=== PATIENT | male | born 1950 | race African-American/Black ===

== ENCOUNTER 2016-11-27 00:15 | Emergency (ER) | payer MEDICARE, OTHER ==
[~2016-11-27] VITALS: Ht 182.9 cm; Wt 99.8 kg
[~2016-11-27 00:15] MED LIST: ACET325T9 PO; ACET325T9 PR; ALPR0.257 PO; ASCO-78 PEG; ASCO500T3 PO; CHLO15MO2 PO; COLL30OI TP; DARB40DI SQ; DOCU60SY5 PO; ENOX40DI SQ; FAMO20TA5 PEG; FAMO20VI3 IVP; FENT100D IV; FENT1PAT15 TP; FENT1PAT21 TP; FERR300L PO; FURO100P IV; HALO5VIA2 IV; INSU100I17 SQ; LACO100T PEG; LACO100T PO; LACO10SO IV; LEVE100020 PEG; LEVE10007 PO; LORA1TAB PO; LORA2VIA IV; MERO1VIA15 IV; METR500P3 IV; MULT9LIQ2 PEG; NYST1POW2 PO; OXYC5TAB PO; PHEN125O3 PO; POLY17PO3 PEG; PROTEIN SUPPLEMENT PEG; QUET25TA5 PEG; RIVA1.5C4 PO; RIVA20TA2 PEG; RIVA20TA2 PO; TRYP30OI2 TP; VANC1.254 IV; VIT1TABL65 PO; ZINC28OI TP; [UNRECOGNIZED DRUG - CODE] IV; [UNRECOGNIZED DRUG - CODE] IV; [UNRECOGNIZED DRUG - CODE] IVP; [UNRECOGNIZED DRUG - CODE] PEG; [UNRECOGNIZED DRUG - CODE] PO; [UNRECOGNIZED DRUG - CODE] PO; [UNRECOGNIZED DRUG - CODE] PO
--- NOTE | 2016-11-27 02:03 | PHYS DOC ---
Past Medical History Past Medical History: Anxiety, Constipation, Dementia, Seizure, UTI Additional Past Medical Histor: PRESSURE ULCERS,FAILURE TO THRIVE,MALNUTRITION, EPILESPY Past Surgical History: Tonsillectomy Alcohol Use: None Drug Use: None Adult General Chief Complaint Chief Complaint: URINE CATHETER PROBLEM HPI HPI Patient is a 66 year old male who presents by EMS from nursing care facility for evaluation of Hernandez catheter problem. Hernandez catheter was not draining, and he acted as if he was having some discomfort. His catheter was manipulated, but nursing facility could not obtain urine output. So, he was sent here. He is minimally verbal at baseline. Nursing facility reports he is at his mental baseline. Review of Systems Review of Systems Unable to obtain secondary to mental status Allergies Allergies Allergies Coded Allergies Type Severity Reaction Last Updated Verified I S O L A T I O N *CONTACT* Allergy Unknown 10/19/16 Yes No Known Medication Allergies Allergy Unknown 10/19/16 Yes Physical Exam Physical Exam Constitutional: Thin, no acute distress, non-toxic appearance. [] HENT: Normocephalic, atraumatic, bilateral external ears normal, oropharynx moist, nose normal. [] Eyes: PERRLA, EOMI. [] Neck: Normal range of motion, no tenderness, supple. [] Cardiovascular:Heart rate regular rhythm [] Lungs & Thorax: Bilateral breath sounds clear to auscultation [] Abdomen: Bowel sounds normal, soft, no tenderness. [] Skin: Warm, dry, no erythema, no rash. [] Back: No tenderness, no CVA tenderness. [] Extremities: No tenderness, no edema. [] Neurologic: Alert, minimally verbal, contractures and wasting of extremities. [] Psychologic: Calm and cooperative. [] Current Patient Data Vital Signs Vital Signs Date Time Temp Pulse Resp B/P (MAP) Pulse Ox O2 Delivery O2 Flow Rate FiO2 11/27/16 00:20 97.6 93 18 155/86 (109) 88 Room Air 97.6 Course & Med Decision Making Course & Med Decision Making Hernandez catheter placed with urine output noted. He'll be transferred back to nursing facility via EMS. Dragon Disclaimer Dragon Disclaimer This electronic medical record was generated, in whole or in part, using a voice recognition dictation system. Departure Departure Impression: Primary Impression: Hernandez catheter problem Disposition: 01 HOME, SELF-CARE (nursing care facility) Condition: STABLE Referrals: ELDON SERRANO MD (PCP) Patient Instructions: Hernandez Catheter Care, Adult Additional Instructions: Follow-up with your primary care doctor. Return for any concerns. Problem Qualifiers Primary Impression: Hernandez catheter problem Encounter type: initial encounter Qualified Codes: T83.9XXA - Unspecified complication of genitourinary prosthetic device, implant and graft, initial encounter Last HEART MD Nov 27, 2016 02:03
[2016-11-27 02:50] VITALS: BP 117/71
== END 2016-11-27 03:02 | disposition home or self-care (01) ==
LOC: ER 00:15
DX: T83.9XXA Unspecified complication of genitourinary prosthetic device, implant and graft, initial encounter (principal); F03.90 Unspecified dementia, unspecified severity, without behavioral disturbance, psychotic disturbance, mood disturbance, and anxiety; Z87.440 Personal history of urinary (tract) infections; G40.909 Epilepsy, unspecified, not intractable, without status epilepticus; Z91.041 Radiographic dye allergy status; Y82.8 Other medical devices associated with adverse incidents; Y92.89 Other specified places as the place of occurrence of the external cause
CPT/HCPCS: 51702; 99284-25

== ENCOUNTER 2017-01-02 11:30 | Emergency (ER) | payer MEDICARE, OTHER ==
[2017-01-02 11:38] VITALS: BP 125/65
--- NOTE | 2017-01-02 12:13 | ED.ADGEN ---
Past Medical History Past Medical History: Anxiety, Constipation, Dementia, Seizure, UTI Additional Past Medical Histor: PRESSURE ULCERS,FAILURE TO THRIVE,MALNUTRITION, EPILESPY Past Surgical History: Tonsillectomy Alcohol Use: None Drug Use: None Adult General Chief Complaint Chief Complaint: GTUBE REPLACEMENT/MALFUNCTION HPI HPI Patient is a 66 year old man, bedbound with severe contractures who is nothing by mouth, who presents from his nursing facility with report of leakage from his PEG tube. Per nursing report, patient had leakage noted at the end of his tube, which was trimmed, and then when they attempted to insert the original port, leaking occurred. There was no difficulty with infusing or drawing back on fluids from the tube, no reports of fever abdominal pain or other complications. Review of Systems Review of Systems Patient is able to state yes and no, denies all complaints. It is a limited historian due to dementia and baseline mental status. Allergies Allergies Allergies Coded Allergies Type Severity Reaction Last Updated Verified I S O L A T I O N *CONTACT* Allergy Unknown 10/19/16 Yes No Known Medication Allergies Allergy Unknown 10/19/16 Yes Physical Exam Physical Exam Constitutional: Well developed, well nourished, no acute distress, non-toxic appearance. [] HENT: Normocephalic, atraumatic, bilateral external ears normal, oropharynx moist, no oral exudates, nose normal. [] Eyes: PERRLA, EOMI, conjunctiva normal, no discharge. [] Neck: Normal range of motion, no tenderness, supple, no stridor. [] Cardiovascular:Heart rate regular rhythm, no murmur, S1, S2, rubs or gallops. [] Lungs & Thorax: Diminished breath of the bases bilaterally, no wheezing, rhonchi , rales. No chest wall crepitus or tenderness. [] Abdomen: Bowel sounds normal, soft, no tenderness, no masses, no rebound, rigidity, no guarding, patient with G-tube in place, site is clean dry and intact, nontender, PEG tube is patent and normal in appearance, with leakage noted at the edge where port is too large for caliber of tube, this edge was trimmed, and replaced with a larger port, with easy aspiration of gastric contents, and free flow of infusion of saline flush, no pulsatile masses. [] Skin: Warm, dry, no erythema, no rash. [] Back: No tenderness, no CVA tenderness. [] Extremities: No tenderness, no cyanosis, no clubbing, ROM intact, no edema. [] Neurologic: Alert and oriented X 3, normal motor function, normal sensory function, no focal deficits noted. [] Psychologic: Affect normal, judgement normal, mood normal. [] Current Patient Data Vital Signs Vital Signs Date Time Temp Pulse Resp B/P (MAP) Pulse Ox O2 Delivery O2 Flow Rate FiO2 01/02/17 11:38 97.6 58 18 125/65 (85) 100 Room Air 97.6 EKG EKG Not indicated. [] Radiology/Procedures Radiology/Procedures Not indicated. [] Course & Med Decision Making Course & Med Decision Making Pertinent Labs and Imaging studies reviewed. (See chart for details) Patient well-appearing, with vital signs within normal limits. No evidence of abdominal or other issues. Patient with leakage from edge of PEG tube, where tube was trimmed to leakage, and the same port was replaced however, it is too small for the caliber of the PEG tube, with persistent leakage, prompting the patient's visit to the emergency department. Tube is otherwise patent and normal appearance. Edge of 2 was trimmed in the ED, and a larger caliber port was placed, which provides a snug fit, gastric contents were aspirated without issue, and normal saline was flushed through the G-tube without resistance, patient was comfortable without any concerning findings in a fight on examination. Tube did not require any other adjustments or changes. Nursing report was given, transfer was obtained via EMS for patient back to the nursing facility. Dragon Disclaimer Dragon Disclaimer This electronic medical record was generated, in whole or in part, using a voice recognition dictation system. Departure Impression: Primary Impression: PEG tube malfunction Disposition: HOME, SELF-CARE Condition: IMPROVED CARLOS SERNA DO Jan 02, 2017 12:13
== END 2017-01-02 12:50 | disposition home or self-care (01) ==
LOC: ER 11:30
DX: K94.23 Gastrostomy malfunction (principal); F03.90 Unspecified dementia, unspecified severity, without behavioral disturbance, psychotic disturbance, mood disturbance, and anxiety; F41.9 Anxiety disorder, unspecified; Z87.440 Personal history of urinary (tract) infections; Z91.041 Radiographic dye allergy status; Y83.8 Other surgical procedures as the cause of abnormal reaction of the patient, or of later complication, without mention of misadventure at the time of the procedure; Y82.8 Other medical devices associated with adverse incidents; Y92.89 Other specified places as the place of occurrence of the external cause
CPT/HCPCS: 99284

== ENCOUNTER 2017-05-08 07:54 | Emergency (ER) | payer MEDICARE, OTHER ==
[~2017-05-08 07:54] MED LIST changes: -OXYC5TAB PO; +OXYC5TAB95 PO
--- NOTE | 2017-05-08 08:20 | PHYS DOC ---
Past Medical History Past Medical History: Anxiety, Constipation, Dementia, Seizure, UTI Additional Past Medical Histor: PRESSURE ULCERS,FAILURE TO THRIVE,MALNUTRITION, EPILESPY Past Surgical History: Tonsillectomy Alcohol Use: None Drug Use: None Adult General Chief Complaint Chief Complaint: BLOOD IN URINE [facility] HPI Patient is a 66 year old male who is bedbound with a history of severe contractures presents to the ED from nursing facility stating that he had blood in his urine since this morning when the nursing staff checked on him. States they are unsure if he pulled on the ignacio. No report of hematuria at previous check by staff. Patient is of his normal mental status, nonverbal, per staff. Nursing report states he has had a history of previous urinary tract infections. Review of Systems Review of Systems Constitutional: Denies fever or chills [] Eyes: Denies change in visual acuity, redness, or eye pain [] HENT: Denies nasal congestion or sore throat [] Respiratory: Denies cough or shortness of breath [] Cardiovascular: No additional information not addressed in HPI [] GI: Denies abdominal pain, nausea, vomiting, bloody stools or diarrhea [] : Complains of hematuria [] Musculoskeletal: Denies back pain or joint pain [] Integument: Denies rash or skin lesions [] Neurologic: Denies headache, focal weakness or sensory changes [] Endocrine: Denies polyuria or polydipsia [] All other systems were reviewed and found to be within normal limits, except as documented in this note. Current Medications Current Medications Current Medications Medications (Trade) Dose Ordered Sig/Aurelio Start Time Stop Time Status Last Admin Dose Admin Ceftriaxone Sodium 50 ml @ 100 mls/hr 1X ONCE 05/08/17 10:00 05/08/17 10:29 DC 05/08/17 10:40 100 MLS/HR Morphine Sulfate 2 mg 1X ONCE 05/08/17 10:30 05/08/17 10:31 DC 05/08/17 10:45 2 MG Ondansetron HCl (Zofran) 4 mg 1X ONCE 05/08/17 10:30 05/08/17 10:31 DC 05/08/17 10:45 4 MG Allergies Allergies Allergies Coded Allergies Type Severity Reaction Last Updated Verified I S O L A T I O N *CONTACT* Allergy Unknown 10/19/16 Yes No Known Medication Allergies Allergy Unknown 10/19/16 Yes Physical Exam Physical Exam Constitutional: no acute distress, non-toxic appearance. [] HENT: Normocephalic, atraumatic, bilateral external ears normal, oropharynx moist, no oral exudates, nose normal. [] Eyes: PERRLA, EOMI, conjunctiva normal, no discharge. [] Cardiovascular:Heart rate regular rhythm, no murmur [] Lungs & Thorax: Bilateral breath sounds clear to auscultation [] Abdomen: Bowel sounds normal, soft, no tenderness, no masses, no pulsatile masses. HEMATURIA IN IGNACIO BAG [] : IGNACIO CATHETER IN PLACE. VASELINE DRESSING TO MEATUS WOUND. NO ACTIVE BLEEDING Skin: Warm, dry [] Extremities: UPPER AND LOWER EXTREMITY CONTRACTURES. No tenderness, no cyanosis , no clubbing, no edema. [] Neurologic: Baseline mental status. [] Psychologic: Baseline for patient. mood normal. [] Current Patient Data Vital Signs Vital Signs Date Time Temp Pulse Resp B/P (MAP) Pulse Ox O2 Delivery O2 Flow Rate FiO2 05/08/17 10:46 62 20 141/80 (100) 94 Room Air 05/08/17 07:54 97.7 97.7 Lab Values Laboratory Tests Test 05/08/17 08:55 White Blood Count 6.8 x10^3/uL (4.0-11.0) Red Blood Count 5.73 x10^6/uL (4.30-5.70) H Hemoglobin 13.8 g/dL (13.0-17.5) Hematocrit 44.1 % (39.0-53.0) Mean Corpuscular Volume 77 fL (79-100) L Mean Corpuscular Hemoglobin 24 pg (25-35) L Mean Corpuscular Hemoglobin Concent 31 g/dL (31-37) Red Cell Distribution Width 16.2 % (11.5-14.5) H Platelet Count 267 x10^3/uL (140-400) Urine Collection Type U cath Urine Color Red Urine Clarity Turbid Urine pH 8.0 Urine Specific [place] 1.015 Urine Protein >=300 mg/dL (NEG-TRACE) Urine Glucose (UA) Negative mg/dL (NEG) Urine Ketones (Stick) mg/dL (NEG) Urine Blood (NEG) Urine Nitrite (NEG) Urine Bilirubin (NEG) Urine Urobilinogen Dipstick mg/dL (0.2 mg/dL) Urine Leukocyte Esterase (NEG) Urine RBC Tntc /HPF (0-2) Urine WBC 11-20 /HPF (0-4) Urine Bacteria Fobs /HPF (0-FEW) Sodium Level 144 mmol/L (136-145) Potassium Level 4.3 mmol/L (3.5-5.1) Chloride Level 107 mmol/L (98-107) Carbon Dioxide Level 30 mmol/L (21-32) Anion Gap 7 (6-14) Blood Urea Nitrogen 26 mg/dL (8-26) Creatinine 0.8 mg/dL (0.7-1.3) Estimated GFR (Cockcroft-Gault) 116.3 BUN/Creatinine Ratio 33 (6-20) H Glucose Level 84 mg/dL (70-99) Calcium Level 9.3 mg/dL (8.5-10.1) Total Bilirubin 0.2 mg/dL (0.2-1.0) Aspartate Amino Transferase (AST) 26 U/L (15-37) Alanine Aminotransferase (ALT) 55 U/L (16-63) Alkaline Phosphatase 98 U/L (46-116) Total Protein 8.4 g/dL (6.4-8.2) H Albumin 3.2 g/dL (3.4-5.0) L Albumin/Globulin Ratio 0.6 (1.0-1.7) L Laboratory Tests 05/08/17 08:55 Laboratory Tests 05/08/17 08:55 EKG EKG [] Radiology/Procedures Radiology/Procedures [] Course & Med Decision Making Course & Med Decision Making Pertinent Labs and Imaging studies reviewed. (See chart for details) []Patient at patient's baseline. Hospice nurse at bedside provided more information about patient's history. One week ago patient had a traumatic Ignacio catheter insertion which caused him to have bleeding from his meatus. States patient is waiting to get a suprapubic catheter placement this next week. Ignacio catheter irrigated and working properly. Abdomen is soft nontender nondistended. No peritoneal signs. Patient is at normal baseline and non-toxic appearing. Discussed follow-up with urology this next week. Hospice nurse states they have made arrangements for him to do so. Patient treated with Rocephin in ED and will discharge with keflex outpatient. Nurse at bedside states they have a urologist that they see. Discussed the importance of follow- up with hospice nurse. Will discharge back to [facility]. Patient stable for return to nursing facility where he lives. Discussed case with attending physician. Agrees with evaluation and plan. Dragon Disclaimer Dragon Disclaimer This electronic medical record was generated, in whole or in part, using a voice recognition dictation system. Departure Departure Impression: Primary Impression: Ignacio catheter problem Disposition: HOME, SELF-CARE Condition: IMPROVED Referrals: ELDON SERRANO MD (PCP) Patient Instructions: Ignacio Catheter Care, Adult Scripts Cephalexin (CEPHALEXIN) 500 Mg Capsule 1 CAP PO TID, #30 CAP Prov: ANITHA SOTOMAYOR 05/08/17 ANITHA SOTOMAYOR May 08, 2017 08:20
[2017-05-08 09:20] LABS: HEMATOCRIT 44.1 % (39.0-53.0); HEMOGLOBIN 13.8 g/dL (13.0-17.5); RED BLOOD COUNT 5.73 x10^6/uL (4.30-5.70); RED CELL DISTRIBUTION WIDTH 16.2 % (11.5-14.5); WHITE BLOOD COUNT 6.8 x10^3/uL (4.0-11.0)
[2017-05-08 09:29] LABS: CALCIUM 9.3 mg/dL (8.5-10.1); CREATININE 0.8 mg/dL (0.7-1.3); GFR 116.3; POTASSIUM 4.3 mmol/L (3.5-5.1)
[2017-05-08 09:33] LABS: ALBUMIN 3.2 g/dL (3.4-5.0); ALBUMIN/GLOBULIN RATIO 0.6 (1.0-1.7); TOTAL BILIRUBIN 0.2 mg/dL (0.2-1.0); TOTAL PROTEIN 8.4 g/dL (6.4-8.2)
[2017-05-08 09:44] LABS: GLUCOSE,URINE NEGATIVE (NEG); PROTEIN,URINE >=300 mg/dL (NEG-TRACE)
[2017-05-08 09:46] LABS: BACTERIA,URINE FOBS /HPF (0-FEW); RBC,URINE TNTC /HPF (0-2)
[2017-05-08] MEDS ORDERED: MORPHINE SULFATE 2 MG/ML DISP.SYRIN. IV ONE (10:30)
[2017-05-08] MEDS ORDERED: ONDANSETRON PF 4 MG/2 ML VIAL. IV ONE (10:30)
[2017-05-08 10:46] VITALS: BP 141/80
[2017-05-08] MEDS ORDERED: CEPH500C PO (11:11)
--- NOTE | 2017-05-08 14:03 | EKG ---
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
== END 2017-05-08 12:01 | disposition home or self-care (01) ==
LOC: ER 07:54
DX: T83.9XXA Unspecified complication of genitourinary prosthetic device, implant and graft, initial encounter (principal); F03.90 Unspecified dementia, unspecified severity, without behavioral disturbance, psychotic disturbance, mood disturbance, and anxiety; Z87.440 Personal history of urinary (tract) infections; G40.909 Epilepsy, unspecified, not intractable, without status epilepticus; Z91.041 Radiographic dye allergy status; Y92.89 Other specified places as the place of occurrence of the external cause
CPT/HCPCS: 36415; 51702; 80053; 81001; 85027; 93005; 96365; 96375; 99285; J0690; J2270; J2405

== ENCOUNTER → 2017-12-22 | Day surgery (SDC) | payer MEDICARE, OTHER ==
[~2017-12-22] MED LIST changes: -ACET325T9 PO; -ACET325T9 PR; -ALPR0.257 PO; -ASCO-78 PEG; -ASCO500T3 PO; -CHLO15MO2 PO; -COLL30OI TP; -DARB40DI SQ; -DOCU60SY5 PO; -ENOX40DI SQ; -FAMO20TA5 PEG; -FAMO20VI3 IVP; -FENT100D IV; -FENT1PAT15 TP; -FENT1PAT21 TP; -FERR300L PO; -FURO100P IV; -HALO5VIA2 IV; -INSU100I17 SQ; -LACO100T PEG; -LACO100T PO; -LACO10SO IV; -LEVE100020 PEG; -LEVE10007 PO; +LIDOCAINE 2% PF Vial for OR 5 ML VIAL.; -LORA1TAB PO; -LORA2VIA IV; -MERO1VIA15 IV; -METR500P3 IV; -MULT9LIQ2 PEG; -NYST1POW2 PO; -OXYC5TAB95 PO; -PHEN125O3 PO; -POLY17PO3 PEG; +PROPOFOL 20 ML IV; -PROTEIN SUPPLEMENT PEG; -QUET25TA5 PEG; -RIVA1.5C4 PO; -RIVA20TA2 PEG; -RIVA20TA2 PO; -TRYP30OI2 TP; -VANC1.254 IV; -VIT1TABL65 PO; -ZINC28OI TP; -[UNRECOGNIZED DRUG - CODE] IV; -[UNRECOGNIZED DRUG - CODE] IV; -[UNRECOGNIZED DRUG - CODE] IVP; -[UNRECOGNIZED DRUG - CODE] PEG; -[UNRECOGNIZED DRUG - CODE] PO; -[UNRECOGNIZED DRUG - CODE] PO; -[UNRECOGNIZED DRUG - CODE] PO
[2017-12-22] MEDS: IV RINGERS,LACTATED 1000ML 1,000 ML IV (14:20)
== END | disposition home or self-care (01) ==
LOC: SURG 13:42
DX: K94.23 Gastrostomy malfunction (principal); K29.50 Unspecified chronic gastritis without bleeding; F03.90 Unspecified dementia, unspecified severity, without behavioral disturbance, psychotic disturbance, mood disturbance, and anxiety; Z86.73 Personal history of transient ischemic attack (TIA), and cerebral infarction without residual deficits; G40.909 Epilepsy, unspecified, not intractable, without status epilepticus; K72.90 Hepatic failure, unspecified without coma; Z79.4 Long term (current) use of insulin; Z79.899 Other long term (current) drug therapy; Z88.8 Allergy status to other drugs, medicaments and biological substances; E78.00 Pure hypercholesterolemia, unspecified; Z98.890 Other specified postprocedural states; Z86.718 Personal history of other venous thrombosis and embolism; K21.9 Gastro-esophageal reflux disease without esophagitis; Z87.440 Personal history of urinary (tract) infections; M19.90 Unspecified osteoarthritis, unspecified site; Z86.14 Personal history of Methicillin resistant Staphylococcus aureus infection; Z82.0 Family history of epilepsy and other diseases of the nervous system; Z84.89 Family history of other specified conditions; Y83.8 Other surgical procedures as the cause of abnormal reaction of the patient, or of later complication, without mention of misadventure at the time of the procedure
CPT/HCPCS: 43246; J2001; J2704